=== PATIENT | male | born 2000 | race Hispanic/Latino ===

== ENCOUNTER 2020-01-12 16:58 | Emergency (ER) | payer OTHER ==
[~2020-01-12] VITALS: Ht 177.8 cm; Wt 91.7 kg
[2020-01-12] MEDS ORDERED: ONDANSETRON 4 MG ORAL DISINTEGRATING TAB (Q0162 PER 1MG) PO ONE (17:30)
[2020-01-12] MEDS ORDERED: IBUPROFEN 600 MG TAB PO ONE (17:30)
[2020-01-12 17:55] LABS: BASO % 0.2 % (0.0-1.0); EOS # 0.1 10^3/uL (0.0-0.5); EOS % 1.6 % (0.0-3.0); HEMATOCRIT 49.7 % (42.0-52.0); HEMOGLOBIN 16.8 g/dl (13.5-17.5); LYMPH # 0.3 10^3/uL (1.5-5.0); MEAN CORPUSCULAR HEMOGLOBIN 32.2 pg (27.0-33.0); MEAN CORPUSCULAR HGB CONC 33.8 g/dl (32.0-36.5); MEAN CORPUSCULAR VOLUME 95.2 fl (80.0-96.0); MONO # 0.4 10^3/uL (0.0-0.8); MONO % 9.7 % (0.0-5.0); NEUTROPHILS # 3.6 10^3/uL (1.5-8.5); NEUTROPHILS % 81.3 % (36.0-66.0); PLATELET COUNT, AUTOMATED 174 10^3/uL (150-450); RED BLOOD COUNT 5.22 10^6/uL (4.30-6.10); WHITE BLOOD COUNT 4.5 10^3/uL (4.0-10.0)
[2020-01-12 18:10] LABS: ALBUMIN 4.1 GM/DL (3.2-5.2); BILIRUBIN,DIRECT 0.2 MG/DL (0.0-0.2); BILIRUBIN,TOTAL 0.7 MG/DL (0.2-1.0); TOTAL PROTEIN 7.3 GM/DL (6.4-8.2)
[2020-01-12 18:13] LABS: INFLUENZA A AMPLIFICATION NEGATIVE (NEGATIVE); INFLUENZA B AMPLIFICATION NEGATIVE (NEGATIVE)
[2020-01-12] MEDS ORDERED: ONDA4TAB6 PO (18:48)
[2020-01-12 18:57] VITALS: BP 131/66
== END 2020-01-12 19:10 | disposition home or self-care (01) ==
LOC: M ED 16:58
DX: R50.9 Fever, unspecified (principal); R11.0 Nausea; M79.10 Myalgia, unspecified site; M54.9 Dorsalgia, unspecified; F17.200 Nicotine dependence, unspecified, uncomplicated
CPT/HCPCS: 80047; 80076; 83690; 85025; 87502; 99283; Q0162

== ENCOUNTER 2020-04-27 00:55 | Emergency (ER) | payer OTHER ==
[~2020-04-27] VITALS: Ht 177.8 cm; Wt 90.9 kg
[2020-04-27 00:55] VITALS: BP 132/75
[~2020-04-27 00:55] MED LIST: ONDA4TAB6 PO
[2020-04-27] MEDS ORDERED: KETO10TAB PO (01:27)
[2020-04-27] MEDS ORDERED: CYCL-707 PO (01:27)
[2020-04-27] MEDS ORDERED: CYCLOBENZAPRINE 10MG TABLET PO ONE (01:30)
[2020-04-27] MEDS ORDERED: KETOROLAC 60MG 2ML VIAL IM ONE (01:30)
== END 2020-04-27 01:38 | disposition home or self-care (01) ==
LOC: M ED 00:55
DX: M54.41 Lumbago with sciatica, right side (principal); F17.200 Nicotine dependence, unspecified, uncomplicated
CPT/HCPCS: 99282; J1885

== ENCOUNTER 2020-05-11 11:15 | Emergency (ER) | payer OTHER ==
[~2020-05-11] VITALS: Ht 177.8 cm; Wt 96.0 kg
[~2020-05-11 11:15] MED LIST changes: +CYCL-707 PO; +KETO10TAB PO
[2020-05-11 11:16] VITALS: BP 122/66
--- NOTE | 2020-05-11 12:07 | REP ---
Left foot series: Four views. History: Injury left foot. Findings: Four views of the left foot demonstrate an os naviculare. Overall mineralization pattern is normal. No fracture or subluxation is evident. Impression: No fracture seen. Electronically Signed by Lan Whitehead MD 05/11/2020 11:59 A
[2020-05-11] MEDS ORDERED: IBUPROFEN 800 MG TAB PO ONE (12:15)
== END 2020-05-11 12:24 | disposition home or self-care (01) ==
LOC: M ED 11:15
DX: S93.602A Unspecified sprain of left foot, initial encounter (principal); X58.XXXA Exposure to other specified factors, initial encounter; Y93.A9 Activity, other involving cardiorespiratory exercise; Y92.89 Other specified places as the place of occurrence of the external cause; Y99.8 Other external cause status; F17.200 Nicotine dependence, unspecified, uncomplicated